=== PATIENT | male | born 1960 | race Caucasian/White ===

== ENCOUNTER 2016-12-21 00:53 | Emergency (ER) | payer SELFPAY ==
[~2016-12-21] VITALS: Ht 170.2 cm; Wt 72.6 kg
[~2016-12-21 00:53] MED LIST: ALBUTEROL 117 GM/INH IN; ALBUTEROL2 PUFFS/17 IN; AZITHROMYCIN250 MG PO; BACTRIM DS 8001 TA1 PO; CIPRO 500MG TA500 MG PO; CLINDAMYCIN HC300 MG PO; CYCLOBENZ5 MG PO; DOXYCYCLINE MO100 MG PO; ETODOLAC400 MG PO; HYCODAN 1.5 MG480 ML PO; IBUPROFEN800 MG PO; KEFLEX 500MG.500 MG OR; LORTAB 5/500 501 TAB PO; LORTAB 500 MG-71 TAB PO; MEDROL 4MG. DOSE4 MG PO; MOTRIN 600MG.600 MG PO; MOTRIN600 MG PO; NAPROSYN 500MG500 MG PO; NOMEDS *; NOMEDS XX; PERCOCET 5/3251 EACH PO; PREDNISONE 10MG10 MG PO; PREDNISONE 1MG.1 MG PO; PREDNISONE 20MG20 MG PO; PREDNISONE50 MG PO; PROVENTIL0.09 MG/AC IH; SULFAMETHOXAZOLE PO; TESSALON PERLE100 M1 PO; TESSALON PERLE100 MG PO; TRAMADOL50 M1 PO; TRIMETHOPRIM PO; Tramadol HCl50 MG PO; ULTRAM50 MG PO; VICODIN 5/500 T1 TAB PO; VOLTAREN75 MG PO; ZANTAC 150150 MG PO; ZITHROMAX Z PA250 MG PO; ZITHROMAX Z-PA250 M1 PO
--- OUTSIDE RECORDS SUMMARY | 2016-12-21 01:05 | External Medical Summary Rpt ---
Author Author , BETTIE Miller BETTIE Address Unknown Phone [email or web address] Providers Care Electrician Station Assistant Name Role Phone Svetlana Echevarria MD, Unavailable Unavailable Svetlana Martinez MD, Unavailable Unavailable Batsheva Martinez MD Purpose Continuity of Care Document - 01-19-2013 through 2016 Problems Code Diagnosis DOS Provider Status 466.0 466.0 ACUTE 07-15-2013 [place] BRONCHITIS [facility] V15.82 V15.82 07-15-[address] [place] [address] [facility] TOBACCO USE [facility] 305.1 305.1 05-25-2013 [place] TOBACCO USE [facility] 535.00 535.00 05-25-[address] [place] [address] [facility] GASTRITIS, [facility] W/O MENTION OF HEMORRHAGE 786.50 786.50 05-25-2013 [place] CHEST PAIN [facility] 413.9 413.9 01-19-[address] [place] [address] [facility] PECTORIS [facility] NEC/NOS J44.9 CHRONIC OBSTRUCTIVE PULMONARY DISEASE, UNSPECIFIED K12.2 CELLULITIS AND ABSCESS OF MOUTH R53.81 OTHER MALAISE S29.011A STRAIN OF MUSCLE AND TENDON OF FRONT WALL OF THORAX, INIT S82.209A UNSP FRACTURE OF SHAFT OF UNSP TIBIA, INIT FOR CLOS FX Allergies, Adverse Reactions, Alerts Type Drug Allergy Adverse Reaction to Substance Substance Reaction Severity Penicillin I-RASH Intermediate Medications Na ND Rx Da Fi Fi Am Da Di Ph RX Ph St me C No te ll ll ou ys ag ar # ys at rm s nt no ma ic us Or Da si cy ia de te s n re d VE 00 02 0 No NT 17 -1 OL 30 7- Lo IN 68 20 ng 22 14 er HF 4 A Ac 90 ti ve MC G IN RAYMUNDO LE R ME 00 02 0 No ED 05 -1 NI 40 7- Lo SO 01 20 ng NE 82 14 er 0 20 Ac ti MG ve TA BL ET Sa 63 12 0 No li 80 -2 ne 70 8- Lo 10 20 ng Fl 07 13 er us 5 h Ac 10 ti ML ve Sy ri ng e Fa 63 12 0 No mo 32 -2 ti 30 8- Lo di 73 20 ng ne 90 13 er 2 20 Ac MG ti /2 ve ML Vi al BA [address] 40 -2 ER 91 8- Lo IO [address] 60 13 er AT 5 IC Ac ti SA ve LI NE AL ME 00 12 0 No TO 40 -2 CL 93 8- Lo OP 41 20 ng RA 40 13 er IA 1 DE Ac ti 10 ve MG /2 ML AL Ib 62 09 0 No up 58 -1 ro 40 4- Lo fe 74 20 ng n 70 13 er 60 1 0M Ac G ti Ta ve bl et Sa 63 08 0 No li 80 -2 ne 70 4- Lo 10 20 ng Fl 07 13 er us 5 h Ac 10 ti ML ve Sy ri ng e Le 51 08 0 No vo 07 -2 fl 90 4- Lo ox 03 20 ng ac 52 13 er in 0 Ac 50 ti 0M ve G Ta bl et ME 00 08 0 No ED 05 -2 NI 40 4- Lo SO 01 20 ng NE 82 13 er 0 20 Ac ti MG ve TA BL ET BE 57 08 0 No NZ 66 -2 ON 40 4- Lo AT 13 20 ng AT 38 13 er E 8 10 Ac 0 ti MG ve CA PS UL E AC 51 08 0 No ET 07 -2 AM 90 4- Lo IN 16 20 ng OP 19 13 er HE 9H N Ac W/ ti CO ve DE IN E #3 TA K Vital Signs 07-15-2013 16:00 Name Value Interpretat Reference Comment ion Range BP 82 mm[Hg] Diastolic BP Systolic 131 mm[Hg] Heart 68 /min Rate/Pulse O2% 98 % Respiratory 20 /min Rate 07-15-2013 15:59 Name Value Interpretat Reference Comment ion Range BP 82 mm[Hg] Diastolic BP Systolic 131 mm[Hg] Heart 68 /min Rate/Pulse O2% 98 % Respiratory 20 /min Rate 05-25-2013 23:12 Name Value Interpretat Reference Comment ion Range Body 98.3 [degF] Temperature BP 52 mm[Hg] Diastolic BP Systolic 110 mm[Hg] Heart 59 /min Rate/Pulse O2% 98 % Respiratory 18 /min Rate 05-25-2013 21:45 Name Value Interpretat Reference Comment ion Range BP 74 mm[Hg] Diastolic BP Systolic 125 mm[Hg] Heart 63 /min Rate/Pulse O2% 98 % Respiratory 20 /min Rate 02-09-2013 16:13 Name Value Interpretat Reference Comment ion Range Body 99.5 [degF] Temperature BP 84 mm[Hg] Diastolic BP Systolic 137 mm[Hg] Heart 77 /min Rate/Pulse O2% 95 % Respiratory 20 /min Rate 01-19-2013 03:16 Name Value Interpretat Reference Comment ion Range Body 98.2 [degF] Temperature BP 77 mm[Hg] Diastolic BP Systolic 150 mm[Hg] Heart 64 /min Rate/Pulse O2% 98 % Respiratory 20 /min Rate 01-19-2013 02:40 Name Value Interpretat Reference Comment ion Range BP 75 mm[Hg] Diastolic BP Systolic 140 mm[Hg] Heart 59 /min Rate/Pulse O2% 98 % Respiratory 20 /min Rate Results Labs Lab Lab Date Result Refere Interp Status Commen Order Detail nces retati t Range on BASIC METABOLIC PANEL (05-25-2013 21:00) Glucose 98 74-106 complet 013 mg/dL ed Bld-mCn 21:00 c BUN 18 7-18 complet Bld-mCn 013 mg/dL ed c 21:00 Creat 1.3 0.8-1.3 complet SerPl-m 013 mg/dL ed Cnc 21:00 Creat 64 50-200 complet Cl 013 ML/MIN ed predict 21:00 ed SerPl C-G-vRa te GFR/BSA 58 Greater complet .pred 013 ML/MIN than ed SerPl 21:00 60 Schwart z-vRate Sodium 143 136-145 complet SerPl-s 013 mmoL/L ed Cnc 21:00 Potassi 4.7 3.5-5.1 complet um 013 mmoL/L ed SerPl-s 21:00 Cnc Chlorid 107 98-107 complet e 013 mmoL/L ed SerPl-s 21:00 Cnc CO2 28 21.0-32 complet SerPl-s 013 mmoL/L .0 ed Cnc 21:00 Calcium 9.2 8.5-10. complet 013 mg/dL 1 ed SerPl-m 21:00 Cnc Salicylates SerPl-mCnc (05-25-2013 21:00) Salicyl 05-25-2 2.8 2.8-20. complet ates 013 mg/dL 0 ed SerPl-m 21:00 Cnc CBC with AUTO DIFF (05-25-2013 21:00) WBC # 05-25-2 9.4 4.8-10. complet Bld 013 K/MM3 8 ed Auto 21:00 RBC # 05-25-2 4.94 4.6-6.2 complet Bld 013 M/mm3 ed Auto 21:00 Hgb 05-25-2 16.6 14.1-18 complet Bld-mCn 013 g/dL .0 ed c 21:00 Hct Fr 48.6 % 42.0-52 complet Bld 013 .0 ed 21:00 MCV RBC 98.4 fl 82.2-97 complet 013 .8 ed 21:00 MCH RBC 33.6 pg 27-31.2 complet Qn 013 ed Auto 21:00 MEAN 34.1 31.8-35 complet CORPUSC 013 g/dl .4 ed ULAR 21:00 HGB CONC RDW RBC 14.4 % 11.5-17 complet Auto 013 .5 ed 21:00 Platele 05-25-2 304 142-424 complet t Bld 013 K/mm3 ed Ql 21:00 Manual MEAN 7.9 fl 7.4-10. complet PLATELE 013 4 ed T 21:00 VOLUME Granulo 2 61.0 % 37.0-80 complet cytes 013 .0 ed Fr Bld 21:00 Auto LYMPH % 2 30.9 % 10-50 complet 013 ed 21:00 Monocyt 05-25-2 4.0 % 1.7-9.3 complet es Fr 013 ed Bld 21:00 Auto Eosinop 05-25-2 3.3 % 0.1-12. complet hil Fr 013 0 ed Bld 21:00 Auto Basophi 05-25-2 0.7 % 0.1-2.0 complet ls Fr 013 ed Bld 21:00 Auto Granulo 2 5.7 1.3-8.0 complet cytes # 013 K/mm3 ed Bld 21:00 Auto Lymphoc 2.9 0.7-4.5 complet ytes Fr 013 K/mm3 ed Bld 21:00 Auto Monocyt 2 0.4 0.1-1.0 complet es # 013 K/mm3 ed Bld 21:00 Auto Eosinop 0.3 0.0-0.4 complet hil # 013 K/mm3 ed Bld 21:00 Auto Basophi 0.1 0-0.2 complet ls # 013 K/MM3 ed Bld 21:00 Auto COMPREHENSIVE METABOLIC PANEL (01-19-2013 02:16) Glucose 97 74-106 complet 013 mg/dL ed Bld-mCn 02:16 c BUN 14 7-18 complet Bld-mCn 013 mg/dL ed c 02:16 Creat 1.4 0.8-1.3 complet SerPl-m 013 mg/dL ed Cnc 02:16 ESTIMAT 61 50-200 complet ED 013 ML/MIN ed CREATIN 02:16 INE CLEARAN CE GFR 53 Greater complet (ESTIMA 013 ML/MIN than ed MACY) 02:16 60 Sodium 144 136-145 complet SerPl-s 013 mmoL/L ed Cnc 02:16 Potassi 3.9 3.5-5.1 complet um 013 mmoL/L ed SerPl-s 02:16 Cnc Chlorid 110 98-107 complet e 013 mmoL/L ed SerPl-s 02:16 Cnc CO2 25 21.0-32 complet SerPl-s 013 mmoL/L .0 ed Cnc 02:16 Calcium 8.5 8.5-10. complet 013 mg/dL 1 ed SerPl-m 02:16 Cnc Prot 7.1 6.4-8.2 complet SerPl-m 013 gm/dL ed Cnc 02:16 Albumin 3.6 3.4-5.0 complet 013 gm/dL ed SerPl-m 02:16 Cnc Globuli 3.5 1.3-3.2 complet n 013 gm/dL ed Ser-mCn 02:16 c Albumin 01-19-2 1.0 UNK 1.1-1.8 complet /Glob 013 ed SerPl-m 02:16 Rto Bilirub 01-19-2 0.7 0.2-1.0 complet 013 mg/dL ed SerPl-m 02:16 Cnc AST 01-19-2 14 U/L 15-37 complet SerPl-c 013 ed Cnc 02:16 ALT 24-2 29 U/L 30-65 complet SerPl-c 013 ed Cnc 02:16 ALP 24-2 87 U/L 50-136 complet SerPl-c 013 ed Cnc 02:16 CBC with AUTO DIFF (01-19-2013 02:16) WBC # 24-2 9.0 4.8-10. complet Bld 013 K/MM3 8 ed Auto 02:16 RBC # 24-2 4.57 4.6-6.2 complet Bld 013 M/mm3 ed Auto 02:16 Hgb 24-2 15.0 14.1-18 complet Bld-mCn 013 g/dL .0 ed c 02:16 Hct Fr 01-19-2 45.9 % 42.0-52 complet Bld 013 .0 ed 02:16 MCV RBC 01-19-2 100.3 82.2-97 complet 013 fl .8 ed 02:16 MCH RBC 24-2 32.8 pg 27-31.2 complet Qn 013 ed Auto 02:16 MEAN 24-2 32.7 31.8-35 complet CORPUSC 013 g/dl .4 ed ULAR 02:16 HGB CONC RDW RBC 24-2 13.4 % 11.5-17 complet Auto 013 .5 ed 02:16 Platele 24-2 307 142-424 complet t Bld 013 K/mm3 ed Ql 02:16 Manual MEAN 24-2 7.7 fl 7.4-10. complet PLATELE 013 4 ed T 02:16 VOLUME Granulo 24-2 51.4 % 37.0-80 complet cytes 013 .0 ed Fr Bld 02:16 Auto LYMPH % 24-2 40.1 % 10-50 complet 013 ed 02:16 Monocyt 24-2 4.6 % 1.7-9.3 complet es Fr 013 ed Bld 02:16 Auto Eosinop -24-2 3.1 % 0.1-12. complet hil Fr 013 0 ed Bld 02:16 Auto Basophi 24-2 0.8 % 0.1-2.0 complet ls Fr 013 ed Bld 02:16 Auto Granulo 24-2 4.6 1.3-8.0 complet cytes # 013 K/mm3 ed Bld 02:16 Auto Lymphoc 24-2 3.6 0.7-4.5 complet ytes Fr 013 K/mm3 ed Bld 02:16 Auto Monocyt -24-2 0.4 0.1-1.0 complet es # 013 K/mm3 ed Bld 02:16 Auto Eosinop 24-2 0.3 0.0-0.4 complet hil # 013 K/mm3 ed Bld 02:16 Auto Basophi 24-2 0.1 0-0.2 complet ls # 013 K/MM3 ed Bld 02:16 Auto Encounters Encounter Start End Date Code Location Performer Type Date Emergency ELMA Echevarria MD (ER) 4 15:21 4 16:00 [facility] Emergency ELMA Martinez MD (ER) 3 21:12 3 23:16 [facility] Emergency ELMA DELANEY (ER) 3 15:46 3 16:15 [facility] Emergency ELMA Martinez MD (ER) 3 01:55 3 03:17 [facility]
--- OUTSIDE RECORDS SUMMARY | 2016-12-21 01:05 | External Medical Summary Rpt ---
Author Author , BETTIE Miller BETTIE Address Unknown Phone [email or web address] Providers Care Mobile Developer Name Role Phone Svetlana Echevarria MD, Unavailable Unavailable Svetlana Martinez MD, Unavailable Unavailable Batsheva Martinez MD Purpose Continuity of Care Document - 01-19-2013 through 2016 Problems Code Diagnosis DOS Provider Status 466.0 466.0 ACUTE 07-15-2013 [place] BRONCHITIS [facility] V15.82 V15.82 07-15-2013 [place] HISTORY OF [facility] TOBACCO USE [facility] 305.1 305.1 05-25-2013 [place] TOBACCO USE [facility] 535.00 535.00 05-25-2013 [place] ACUTE [facility] GASTRITIS, [facility] W/O MENTION OF HEMORRHAGE 786.50 786.50 05-25-2013 [place] CHEST PAIN [facility] 413.9 413.9 01-19-2013 [place] ANGINA [facility] PECTORIS [facility] NEC/NOS J44.9 CHRONIC OBSTRUCTIVE PULMONARY DISEASE, UNSPECIFIED [...] ve MC G IN [place]AYMUNDO LE R [place] 00 02 0 No ED 05 -1 [...] ti 0M ve G Ta bl et [place] 00 08 0 No ED 05 -2 [...] Echevarria MD (ER) 4 15:21 4 16:00 [facility] Emergency ELMA Martinez MD (ER) 3 21:12 3 23:16 [facility] Emergency ELMA DELANEY (ER) 3 15:46 3 16:15 [facility] Emergency ELMA Martinez MD (ER) 3 01:55 3 03:17 [facility]
--- OUTSIDE RECORDS SUMMARY | 2016-12-21 01:06 | External Medical Summary Rpt ---
Author Author BETTIE Aquino, BETTIE Aquino Organization [employer] Address Unknown Phone Unavailable
--- OUTSIDE RECORDS SUMMARY | 2016-12-21 01:06 | External Medical Summary Rpt ---
Demographics Preferred Language Frisian Marital Status Unknown Cheondoism Affiliation Unknown Race Unknown Ethnic Group Unknown Author Author ANDREW Address Unknown Phone [email or web address] Purpose Continuity of Care Document - through 2016
--- OUTSIDE RECORDS SUMMARY | 2016-12-21 01:06 | External Medical Summary Rpt ---
Demographics Preferred Language Slovak Marital Status Unknown Latter-Day Affiliation Unknown Race Unknown Ethnic Group Unknown Author Author ANDREW Address Unknown Phone [email or web address] Purpose Continuity of Care Document - through 2016
--- OUTSIDE RECORDS SUMMARY | 2016-12-21 01:06 | External Medical Summary Rpt ---
Demographics Preferred Language Turkmen Marital Status Unknown Muslim Affiliation Unknown Race Unknown Ethnic Group Unknown Author Author , ANDREW ALEXANDRE Address Unknown Phone Immunization Unable to retrieve immunization data due to connection failure with Immunization Registry. Please try again later.
--- OUTSIDE RECORDS SUMMARY | 2016-12-21 01:06 | External Medical Summary Rpt ---
Demographics Preferred Language Irish Marital Status Unknown Scientologist Affiliation Unknown Race Unknown Ethnic Group Unknown Author Author , ANDREW ALEXANDRE Address Unknown Phone Immunization Unable to retrieve immunization data due to connection failure with Immunization Registry. Please try again later.
[2016-12-21] MEDS ORDERED: MINOCYCLINE 10100 MG PO (01:16)
[2016-12-21] MEDS ORDERED: ANUSOL-HC2.5% EX (01:16)
--- NOTE | 2016-12-21 01:21 | Emergency Room Report ---
History of Present Illness Time Seen by MD Leblanc Presenting Problem in Triage Pt arrived:Walked Presenting Problem:PT C/O DENTAL PAIN X "A FEW DAYS" AND STS "I THINK I HAVE HEMORRHOIDS, I'VE BEEN BURNING AND ITCHING REAL BAD FROM [place]" Onset of symptoms date/time:/ or onset unknown for:MEDICAL HX UNKNOWN Treatment Prior to Arrival: [facility]PER Provided by: Sepsis Risk Assessment: Temp: 97.5 B/P: 148/105 MAP: 119 Pulse: 69 Resp: 18 Recent fever? N Clinical Suspician of Infection? N Mental Status: 1 - Regular (Normal Baseline) Sepsis Risk:Low Sepsis Risk Have you (or family members/close friends) recently traveled outside the [place]? N If Yes, where/when: Have you had exposure to infectious disease within the past month? N TB? Other? Specify: Source patient, RN notes reviewed, old records Exam Limitations no limitations Comment pt with hemmorroid and has dental pain over the last few days with min bleeding Cardiac Chest Pain Chest pain indicative of cardiac No Timing/Duration this evening Severity moderate ALLERGIES Coded Allergies: Penicillins (Intermediate, I-RASH 05/18/15) Home Medications Reported Medications No Known Home Medications History Medical History General CAD? No Angina: Yes SD: No Hypertension? No Hyperlipidemia? No CHF? No DVT? No PE? No COPD? No Asthma? No Anemia? No GERD? No Gastric ulcers? No GI Bleed? No Hernia? No Thyroid Problems? No Hypothyroidism? No CVA? No Seizures? No Diabetes? No Renal Insuffiency? No End Stage Renal Disease? No UTI? No Stones? No BPH? No GB Disease: No Nephritic Syndrome? No Asplenia? No Hepatitis? No Sickle Cell Disease? No Arthritis? No Migraines? No Cataracts? No Glaucoma? No MRSA? No HIV? No TB? No Anxiety? Yes Depression? Yes Cancer? No Immunization Hx DT/Tetanus 1-4 YRS Surgical Hx Previous Surgery?Y LEFT FOOT REPAIR CARDIAC CATH EGD RIGHT LOWER LEG Social History Smoking Hx Smoker: Former Smoker Tobacco: No Type Cigarettes Packs/day < 1 Pack Alcohol Alcohol: No Drugs none Review of Systems All Other Systems Reviewed and Negative Constitutional denies fever Eyes denies drainage ENT see HPI, mouth pain, dental caries. Respiratory denies cough Cardiovascular denies chest pain, denies palpitations Gastrointestinal denies abdominal pain, denies diarrhea, denies vomiting Genitourinary denies: dysuria, frequency, hesitancy, hematuria. Musculoskeletal denies back pain, denies joint pain, denies joint swelling, denies neck pain Skin denies rash Psychiatric/Neurological denies headache, denies seizure Physical Exam Vital Signs Vital Signs Date Time Temp Pulse Resp B/P Pulse O2 O2 Flow FiO2 Ox Delivery Rate 12/21 0059 97.5 69 18 148/105 94 - WBC >12,000 or <4,000 or 10% bands? 2 or more SIRS Criteria Met? B/P:148/105 MAP:119 Creatinine >2.0? UA output<0.5ml/kg/hr for 2 hrs? Platelet count >100,000? Lactate >2.0mmol/1? INR >1.2 or PTT > than 60 sec? Evidence of Organ Dysfunction? Provider documented clinical suspician of infection? N Sepsis Criteria Count: 0 Sepsis Risk: Low Sepsis Risk General Appearance no apparent distress Eye Exam - bilateral eye PERRL, bilateral eye EOMI Ear, Nose, Throat dental caries, gingival disease Neck non-tender Respiratory Status No: respiratory distress. Cardiovascular regular rate/rhythm, no murmur Peripheral Pulses Pulses normal Yes Extremities normal inspection Strength 4 Upper Ext (L), 4 Upper Ext (R), 4 Lower Ext (L), 4 Lower Ext (R) Rectal possible small hemmorroids Neurologic alert, infection control manager II-XII nml as tested, no motor/sensory deficits Reflexes Reflexes normal No Mental status normal mood/affect Skin intact Medical Decision Making LABS/Meds/Orders Pt receiving controlled substance in ED? No Departure Departure Time of Disposition 0113 Disposition DC Home or Self Care(routine) Clinical Impression Primary Impression: Infected dental caries Secondary Impressions: Elevated BP without diagnosis of hypertension Hemorrhoids Qualifiers: Hemorrhoid type: unspecified Qualified Code: K64.9 - Unspecified hemorrhoids Pain, dental Condition STABLE Patient Instructions DI for Hemorrhoids Additional Instructions use meds and see pcp for follow up Discharge Counseling Counseled pt/family regarding diagnosis, test results, medications/RX, follow up needs Prescriptions Current Visit Scripts Minocycline Hcl (Minocycline 100MG. Capsule) 100 MG PO BID #20 CAP Hydrocortisone (Anusol-Hc) 30 GM EX BID #1 CRE Ref 1 ED Critical Care Critical Care No at 0120
[2016-12-21 01:29] VITALS: BP 125/79
== END 2016-12-21 01:29 | disposition home or self-care (01) ==
LOC: ER 00:53
DX: K04.7 Periapical abscess without sinus (principal); R03.0 Elevated blood-pressure reading, without diagnosis of hypertension; K64.9 Unspecified hemorrhoids